=== PATIENT | male | born 1985 | race Caucasian/White ===

== ENCOUNTER 2016-11-11 09:19 | Emergency (ER) | payer OTHER ==
[2016-11-11 09:26] VITALS: BP 145/93
[2016-11-11] MEDS ORDERED: Azithromycin 250 MG Tab PO ONE (10:38)
[2016-11-11] MEDS ORDERED: cefTRIAXone 500 MG Vial IM ONE (10:38)
--- NOTE | 2016-11-11 10:52 | EDM.PDOC ---
[id number] 4d GROIN PAIN Time Seen by Provider: 11/11/16 10:47 Source of Information: Reports: Patient History Limitations: Reports: No limitations - History of Present Illness INITIAL COMMENTS - FREE TEXT/NARRATIVE: patient complains of difficulty with voiding. Complains of generalized lower pelvic pain. Patient is sexually active.Notes dysuria. The faculty initiating urinary stream. Complains of pain to the scrotum. No blood in the urine. No constipation or diarrhea. No fever chills. Denies abdominal pain. Timing/Duration: Reports: Day(s):, Constant Location: Reports: scrotal, groin Quality: Reports: ache, burning, fullness - Related Data Allergies/ADRs: Allergies Allergy/AdvReac Type Severity Reaction Status Date / Time No Known Allergies Allergy Verified 11/11/16 09:27 Home Meds: Home Meds Gabapentin [Neurontin] 1 tab PO BID 11/11/16 [History] Lisinopril/Hydrochlorothiazide [Lisinopril-Hctz 20-12.5 mg Tab] 1 tab PO DAILY 11/11/16 [History] Past Medical History Cardiovascular History: Reports: Hypertension Genitourinary History: Reports: STD Musculoskeletal History: Reports: Back pain, chronic Social & Family History - Tobacco Use Smoking Status *Q: Current Every Day Smoker Years of Tobacco use: 16 Packs/Tins Daily: 0.5 Used Tobacco, but Quit: No Second Hand Smoke Exposure: Yes - Caffeine Use Caffeine Use: Reports: Soda - Alcohol Use Days Per Week of Alcohol Use: 7 Number of Drinks Per Day: 10 Total Drinks Per Week: 70 - Recreational Drug Use Recreational Drug Use: No Drug Use in Last 12 Months: Yes Recreational Drug Type: Reports: Heroin, Marijuana/Hashish, Morphine, Oxycodone , Vicodin, Xanax Recreational Drug Use Frequency: Daily Recreational Drug Last Use: today - Living Situation & Occupation Living situation: Reports: single, alone Occupation: disabled ED ROS GENERAL - Review of Systems Review Of Systems: See Below Constitutional: Reports: malaise HEENT: Reports: No symptoms Respiratory: Reports: No Symptoms Cardiovascular: Reports: No symptoms Endocrine: Reports: no symptoms GI/Abdominal: Denies: Constipation, Diarrhea : Reports: dysuria, pain Musculoskeletal: Reports: no symptoms Skin: Reports: no symptoms Neurological: Reports: No Symptoms Psychiatric: Reports: No symptoms Hematologic/Lymphatic: Reports: no symptoms Immunologic: Reports: no symptoms ED EXAM, RENAL/ - Physical Exam Exam: See Below Exam Limited By: No limitations General Appearance: alert, WD/WN, no apparent distress Respiratory/Chest: no respiratory distress, lungs clear Cardiovascular: regular rate, rhythm, no edema GI/Abdominal: normal bowel sounds, soft, non tender (Male) Exam: No hernia, Normal inspection, Scrotum tenderness (L), Scrotum tenderness (R), Other (uncircumcised male. Nontender to the epididymis. No pain to palpation to the testicles bilaterally. No evidence for hernia.). No: Hernia , Inguinal lymphadenopathy, Scrotal swelling, Suprapubic fullness, Testicular mass, Testicular tenderness (L), Testicular tenderness (R), Urethral discharge Rectal (Males) Exam: Deferred Extremities: normal inspection, normal range of motion Neurological: alert, oriented, CN II-XII intact Skin Exam: Warm, Dry, Intact Course - Vital Signs Last Recorded V/S: Last Vital Signs Temp 97.8 F 11/11/16 09:25 Pulse 119 H 11/11/16 09:25 Resp 20 11/11/16 09:25 BP 145/93 H 11/11/16 09:25 Pulse Ox 100 11/11/16 09:25 - Orders/Labs/Meds Orders: Active Orders 24 hr Category Date Time Status CHLAMYDIA TRACHOMATIS/GC AMPLF Urgent Lab 11/11/16 09:35 Received Labs: Laboratory Tests 11/11/16 Range/Units 09:35 Urine Color Yellow (YELLOW) Urine Appearance Slightly cloudy (CLEAR) Urine pH 6.0 (5.0-9.0) Ur Specific [place] >= 1.030 (1.005-1.030) Urine Protein >=300 H (NEGATIVE) Urine Glucose (UA) Negative (NEGATIVE) Urine Ketones >=160 H (NEGATIVE) Urine Occult Blood Negative (NEGATIVE) Urine Nitrite Negative (NEGATIVE) Urine Bilirubin Large H (NEGATIVE) Urine Urobilinogen 1.0 (0.2-1.0) mg/dL Ur Leukocyte Esterase Trace H (NEGATIVE) Urine RBC 10-20 H /HPF Urine WBC 5-10 H (0-5/HPF) /HPF Ur Epithelial Cells Few /HPF Urine Bacteria Many H (0-FEW/HPF) /HPF Urine Mucus Many H /LPF Urinalysis Comment Chlamydia and gonorrhea are pending. Meds: Medications Discontinued Medications Generic Name Dose Route Start Last Admin Trade Name Gee PRN Reason Stop Dose Admin Azithromycin 1,000 mg 11/11/16 10:38 Zithromax PO 11/11/16 10:39 ONETIME ONE Ceftriaxone Sodium 500 mg 11/11/16 10:38 Rocephin IM 11/11/16 10:39 ONETIME ONE - Re-Assessments/Exams Free Text/Narrative Re-Assessment/Exam: patient is given Rocephin intramuscular along with oral Zithromax 11/11/16 10:51 Free Text/Narrative Re-Assessment/Exam: in an in differential diagnosis with patient which includes prostatitis, epididymitis,sexually transmitted infection, urinary tract infection, etc. Patient will be treated with Bactrim double strength for 7 days. If he continues to have symptoms he will then switch to doxycycline twice a day. He should followup with his regular care provider 11/11/16 10:52 Departure - Departure Time of Disposition: 10:55 Disposition: Home, Self-Care 01 Condition: good Clinical Impression: UTI, Urinary tract infectious disease Instructions: Sexually Transmitted Disease, [id number], Urinary Tract Infection, Adult, [id number] Forms: ED Department Discharge Additional Instructions: Take Bactrim as directed. When completed if still having symptoms begin the doxycycline as instructed. Take hydrocodone as needed for pain. Utilize ibuprofen and acetaminophen also. If no improvement in the next few days return for a recheck. Followup with regular provider in one to 2 weeks. Call or return to emergency room if any problems questions or concerns - My Orders Last 24 Hours: My Active Orders 11/11/16 09:35 CHLAMYDIA TRACHOMATIS/GC AMPLF Urgent - Assessment/Plan Last 24 Hours: My Active Orders 11/11/16 09:35 CHLAMYDIA TRACHOMATIS/GC AMPLF Urgent
== END 2016-11-11 11:06 | disposition home or self-care (01) ==
LOC: DL.ED 09:19
DX: N39.0 Urinary tract infection, site not specified (principal); I10 Essential (primary) hypertension; F17.210 Nicotine dependence, cigarettes, uncomplicated; Z79.899 Other long term (current) drug therapy
CPT/HCPCS: 81001; 87491; 87591; 99283